=== PATIENT | male | born 1950 | race Caucasian/White ===

== ENCOUNTER 2020-07-19 07:28 | Day surgery (SDC) | payer MEDICARE ==
[2020-07-17 14:34] VITALS: BMI 47.3
[~2020-07-19 07:28] MED LIST: Pre Op ABX Message 1 EACH MISC MISCELLANE ONE; ceFAZolin 3 GM in SODIUM CHLORIDE 0.9% 100 ML IVPB PRN
[2020-07-19] MEDS ORDERED: LACTATED RINGERS 1,000 ML IV ONE (08:15)
[2020-07-19] MEDS ORDERED: ONDANSETRON 4 MG/2 ML VIAL ONE (08:27)
[2020-07-19] MEDS ORDERED: MIDAZOLAM 2 MG/2 ML VIAL IV ONE (08:34)
[2020-07-19] MEDS ORDERED: DEXAMETHASONE SOD PHOSPHATE 4 MG/ML 1 ML VIAL IV ONE (08:40)
[2020-07-19 08:57] VITALS: TEMP 97.6
--- NOTE | 2020-07-19 08:57 | P.ANPRN ---
Procedure Note - Anesthesia - Nerve Block Performed Left Interscalene Single Time Out Performed: Yes Date of Procedure: 07/19/20 Location of Patient: PreOp Indication: Acute Post-Operative Pain, Requested by Surgeon Sedation Type: Sedate with meaningful contact maintained Preparation: Sterile Prep Position: Supine Needle Types: Pajunk Ultrasound used to visualize needle placement: Yes Ultrasound used to observe medication spread: Yes Blood Aspirated: No Pain Paresthesia on Injection Noted: No Resistance on Injection: Normal Image Stored and Saved: Yes Events: Uneventful and Well Tolerated (ropi .5% 20cc plus dexamethasone 4mg)
[2020-07-19] MEDS ORDERED: SUCCINYLCHOLINE CHLORIDE VIAL 200 MG/10 ML VIAL IV ONE (09:24)
[2020-07-19] MEDS ORDERED: ROPIVACAINE 5 MG/ML 30 ML VIAL ONE (09:24)
[2020-07-19] MEDS ORDERED: LIDOCAINE 1% INJ 10MG/ML (20 ML MDV) ONE (09:24)
[2020-07-19] MEDS ORDERED: fentaNYL (PF) 50 MCG/ML 2 ML AMP ONE (09:24)
[2020-07-19] MEDS ORDERED: PHENYLEPHRINE-0.9% NACL SYG 1,000 MCG/10 ML SYRINGE ONE (09:24)
[2020-07-19] MEDS ORDERED: DEXAMETHASONE SOD PHOSPHATE 4 MG/ML 1 ML VIAL ONE (09:24)
[2020-07-19] MEDS ORDERED: PROPOFOL 10 MG/ML 20 ML VIAL IV ONE (09:24)
[2020-07-19] MEDS ORDERED: LIDOCAINE 1%-EPI 1:100,000 20 ML VIAL INTRAARTIC ONE (10:08)
[2020-07-19] MEDS ORDERED: ALBUTEROL NEBULIZED 2.5 MG/3 ML INHALATION ONE (10:56)
[2020-07-19] MEDS ORDERED: HYDROmorphone 0.5 MG/0.5 ML SYRINGE IVP ONE (11:00)
--- NOTE | 2020-07-19 11:32 | OP ---
OPERATIVE REPORT DATE OF PROCEDURE: 07/19/2020. SURGEON: Ilan Trinidad MD. INFORMATION MANAGEMENT SPECIALIST: KYREE Ruff. PREOPERATIVE DIAGNOSES: 1. Left shoulder recurrent rotator cuff tear. 2. Left shoulder subacromial impingement. POSTOPERATIVE DIAGNOSES: 1. Left shoulder intact rotator cuff. 2. Left shoulder anterior superior posterior labral tear. 3. Left shoulder dense subacromial adhesions. PROCEDURE PERFORMED: 1. Left shoulder anterior superior and posterior labral debridement. 2. Left shoulder arthroscopic subacromial decompression. ANESTHESIA: General endotracheal. ESTIMATED BLOOD LOSS: Minimal. TOURNIQUET: None. DRAINS: None. COMPLICATIONS: None apparent. DISPOSITION: Postanesthesia care unit. EXAMINATION UNDER ANESTHESIA: Left shoulder elevation 160 degrees, external rotation at the side was 40 degrees, external rotation at 90 degrees, abduction was 90 degrees, internal rotation 90 degrees, abduction was 60 degrees, sulcus less than 1 cm, anterior translation glenoid face, posterior translation glenoid face. ARTHROSCOPIC FINDINGS LEFT SHOULDER: 1. Superior labrum: Degenerative tearing of the anterior, superior and posterior labrum. The biceps had been previously released. 2. Anterior inferior labrum fraying, a but normal glenoid labral attachment. 3. Posterior labral tearing of the posterior labrum from the 4 to 5 o'clock position to the 12 o'clock position on the glenoid face. 4. Humeral head cartilage was normal. 5. Rotator cuff intact supraspinatus, subscapularis, and infraspinatus. There was fraying on the bursal surface of the supraspinatus, but no evidence of full- thickness tear with probing, it was deemed that the attachment was fairly thick, certainly in my estimation, greater than 50% thickness of the rotator cuff. 6. Glenoid face cartilage with mild grade 1 change. 7. Subacromial space: There was significant subacromial adhesions in bursa. The acromion was type 1. INDICATIONS: Adama is a very pleasant 70-year-old male with left shoulder pain. He underwent left shoulder arthroscopic rotator cuff repair by myself several years ago. He has noted recurrence of some weakness and pain in the shoulder. He has been through a very significant course of nonoperative treatment up to this point visit. Physical examination and MRI revealed possibility for recurrent tearing of the rotator cuff. At this point in time, he feels as if he has failed nonoperative treatment and he would like to proceed with operative intervention. Long discussion was held with the patient with regard to treatment options. The risks of procedure were all discussed with him in detail. These risks included, but were not limited to risk of infection, nerve damage, bleeding, pain, and a small risk of deep vein thrombosis which could lead to fatal pulmonary embolism. Further risks include lack of healing of rotator cuff. The patient understands the operation as well as the fact that there is no guarantee of improvement of his symptoms. Appropriate informed consent was obtained. DESCRIPTION OF THE PROCEDURE: The patient was identified in preoperative holding area. Surgical site was marked by both the patient and myself. He was given 3 grams of Ancef IV for prophylactic purposes. He was then transported to the operative suite. He was placed supine on the operating room table. The patient was then intubated endotracheally and received general anesthesia throughout the operative procedure. Examination under anesthesia was then performed and the findings noted above. The patient was then placed into the beach chair position well-padded in preparation for surgery. Great care was taken to ensure the cervical spine is in neutral alignment well-padded and maintained that way throughout the operative procedure. Great care was also taken to ensure that his legs were appropriately padded as well. The patient's left upper extremity was then prepped and draped in usual sterile fashion. Standard surgical pause was undertaken to ensure that appropriate preoperative antibiotics had been given and that we were operating on the correct site. All staff in the room were in agreement and we proceeded. The acromion as well as the AC joint and coracoid were marked with surgical pen. Skin of the anticipated portal sites were also marked with surgical pen. The skin of the anticipated portal sites were then injected with 0.25% Marcaine with epinephrine. I then proceeded to make the posterior portal. A 30-degree arthroscope was introduced into the glenohumeral joint through this portal. The arthroscopic pump pressure was set at 40 mmHg and maintained at a level throughout the entire case. Next, utilizing the 18-gauge spinal needle to topically localize the placement, the anterior superior portal was made. This was made high in the rotator interval. A small 5.75 mm cannula was then placed and the outflow was then done through this cannula. Diagnostic arthroscopy of shoulder was then performed. The findings noted above. He had a significant fraying and tearing of the superior, anterior superior and posterior labrum. The posterior labral tearing was most pronounced. This extended down to approximately the 4 o'clock position on the glenoid face. I then proceeded to debride the torn loose tissue of the labrum. This was debrided anteriorly superiorly and posteriorly back to stable tissue. I then inspected the rotator cuff from intra-articular. The rotator cuff was pristine from intra-articular. There was no evidence of articular sided tearing of the subscapularis, supraspinatus, or infraspinatus. At this point, no further work was deemed necessary from intra-articular. The arthroscope was removed from the glenohumeral joint and utilizing the same posterior skin incision was placed in the subacromial space. Next utilizing an 18-gauge spinal needle to topically localize the placement. A lateral port was made under direct visualization. There was significant dense subacromial bursitis and adhesions likely from his previous surgery. A subacromial bursectomy was then performed utilizing synovial shaver as well as the [employer] wand. He had had a previous acromioplasty. The acromion was flat. No indication to perform any further acromioplasty. The arthroscope was then placed into the lateral portal. I then was able to view the entire rotator cuff. The shoulder was free and able to be taken through full range of motion. There was fraying on the bursal surface of the rotator cuff, but there was no evidence of full-thickness tearing. I probed the anterior area where the previous repair was. The previous repair was intact. The rotator cuff had healed. There was no evidence of any full-thickness tearing or high-grade partial thickness tearing of the rotator cuff. At this point in time no further work was deemed necessary. The shoulder was thoroughly irrigated and drained with an outflow cannula. The arthroscopic equipment was removed from the shoulder. The arthroscopic portals were then closed with 3-0 nylon interrupted suture. Sterile compressive dressing was then applied. The patient's left upper extremity was placed into a standard sling. All sponge and needle counts were deemed correct prior to closure. The patient tolerated procedure without apparent complication. He was transferred to recovery room in stable condition. MMODL / IJN: [id number] /
[2020-07-19 11:40] VITALS: PULSE 84
[2020-07-19] MEDS ORDERED: HYDROcodone/APAP 5-325MG 1 EACH TAB ONE (11:47)
[2020-07-19] MEDS ORDERED: HYDROcodone/APAP 5-325MG 1 EACH TAB PO ONE (11:50)
[2020-07-19 11:55] VITALS: RESP 16
[2020-07-19 12:09] VITALS: BP 133/82
== END 2020-07-19 12:33 | disposition home or self-care (01) ==
LOC: OR 07:28
PROVIDERS: ATTEND Orthopaedic Surgery Sports Medicine
DX: S43.432A Superior glenoid labrum lesion of left shoulder, initial encounter (principal); M75.02 Adhesive capsulitis of left shoulder; I10 Essential (primary) hypertension; E78.5 Hyperlipidemia, unspecified; M19.012 Primary osteoarthritis, left shoulder; M75.42 Impingement syndrome of left shoulder; E55.9 Vitamin D deficiency, unspecified; F17.290 Nicotine dependence, other tobacco product, uncomplicated; J44.9 Chronic obstructive pulmonary disease, unspecified; G47.33 Obstructive sleep apnea (adult) (pediatric); E66.01 Morbid (severe) obesity due to excess calories; Z79.899 Other long term (current) drug therapy; Z97.3 Presence of spectacles and contact lenses; Z88.0 Allergy status to penicillin; Z98.890 Other specified postprocedural states; Z79.82 Long term (current) use of aspirin; Z88.1 Allergy status to other antibiotic agents; Z88.8 Allergy status to other drugs, medicaments and biological substances; Z87.442 Personal history of urinary calculi; Z68.42 Body mass index [BMI] 45.0-49.9, adult; Z82.49 Family history of ischemic heart disease and other diseases of the circulatory system; X58.XXXA Exposure to other specified factors, initial encounter
CPT/HCPCS: 64415; 76942; 29822; J2250; J0330; J1100; J0690; J2405; J2001; J3010; J2795; J2370; J2704; J1170

== ENCOUNTER → 2021-01-28 | Outpatient (CLI) | payer MEDICARE ==
--- NOTE | 2021-01-28 13:15 | XR ---
Bilateral hips HISTORY: Pain 2 views each hip submitted Marginal spurring is present, hypertrophic change along the acetabulum noted on the left, consider ac etabular femoral impingement. Bone mineralization and alignment are maintained. There is no fracture or dislocation. Some calcification is present along the region of the joint margin which is indetermi inocente. IMPRESSION: Osteoarthritis, consider acetabular femoral impingement. Additional findings above.
== END | disposition home or self-care (01) ==
LOC: RADXRMAIN 11:17
PROVIDERS: ATTEND Internal Medicine
DX: M16.0 Bilateral primary osteoarthritis of hip (principal)
CPT/HCPCS: 73521

== ENCOUNTER → 2023-06-16 | Outpatient (CLI) | payer MEDICARE ==
--- NOTE | 2023-06-17 08:09 | XR ---
EXAMINATION TYPE: XR chest 2V DATE OF EXAM: 06/16/2023 COMPARISON: NONE TECHNIQUE: PA and lateral views submitted. HISTORY: Cough FINDINGS: The lungs are clear and there is no pneumothorax, pleural effusion, or focal pneumonia. Heart size normal and no overt failure. Osseous structures demonstrate hypertrophic and degenerative changes of the spine. Biapical pleural thickening. Ectasia of the aorta. IMPRESSION: 1. No acute process.
== END | disposition home or self-care (01) ==
LOC: RADXRMAIN 15:59
PROVIDERS: ATTEND Internal Medicine
DX: R05.9 Cough, unspecified (principal)
CPT/HCPCS: 71046